=== PATIENT | male | born 1995 | race Caucasian/White ===

== ENCOUNTER 2018-09-12 06:28 | Emergency (ER) | payer BC ==
[~2018-09-12] VITALS: Ht 167.6 cm; Wt 72.3 kg
[2018-09-12 06:32] VITALS: Ht 167.6 cm; Wt 72.3 kg
[2018-09-12] MEDS ORDERED: KETOROLAC 60 MG INJ IM STA (07:16)
[2018-09-12] MEDS ORDERED: IBUP-1542 PO (10:19)
[2018-09-12 10:34] VITALS: BP 145/86; PULSE 80; RESP 17
--- NOTE | 2018-09-12 11:40 | ERD ---
ER Documentation Chief Complaint Chief Complaint HEADACHE X 8 DAYS HPI 23-year-old male patient with no significant past medical history presents to ED complaining of a gradual onset headache that started 8 days ago. Patient reports that it feels like a pulsing sensation in the back of his head. Patient reports that he has been more stressful due to having problems with his girlfriend according to his friend. Patient is [place]ian-speaking. Reports that loud noises does make his headache worse. Denies any suicidal or homicidal ideations. States that he also does not drink much water. Denies any fever, chills, nausea, vomiting, diarrhea, neck stiffness. Denies any head or neck injuries. Denies any vision loss, diplopia. ROS All systems reviewed and are negative except as per history of present illness. Medications Home Meds Active Scripts Ibuprofen* (Motrin*) 600 Mg Tab, 600 MG PO Q6, #30 TAB Prov:AMADEO PALOMINO PA-C 09/12/18 Allergies Allergies: Coded Allergies: No Known Allergy (Unverified , 09/12/18) PMhx/Soc Medical and Surgical Hx: pt denies Medical Hx, pt denies Surgical Hx Hx Alcohol Use: No Hx Substance Use: No Hx Tobacco Use: No Smoking Status: Never smoker FmHx Family History: No diabetes, No coronary disease Physical Exam Vitals Vital Signs Date Temp Pulse Resp B/P (MAP) Pulse Ox O2 O2 Flow FiO2 Time Delivery Rate 09/12/18 80 17 145/86 98 10:34 (105) 09/12/18 97.6 83 16 143/85 100 06:32 (104) Physical Exam Const: Mne-ogf-luhvjjtya, well-nourished. In no acute distress. Head: Atraumatic, normocephalic. No hematoma. No trevino sign. No raccoon eyes. Eyes: Normal Conjunctiva without injection. No purulent discharge. PERRLA. EOMI ENT: Normal external ear. Ear canal without erythema. Tympanic membrane pearly cheema without effusion or bulging. Nasal canal clear with normal turbinates. Moist oropharynx without tonsillar exudates. Non-erythematous pharynx. Uvula midline. No drooling. No trismus. Neck: No cervical midline tenderness. Full range of motion. No meningismus. No cervical lymphadenopathy. No JVD. Resp: Clear to auscultation bilaterally. No wheezing, rhonchi, rales, or crackles. No accessory muscle use. No retractions. Cardio: Regular rate and rhythm. No murmurs, rubs or gallops. Abd: Soft, non tender, non distended. Normal bowel sounds. No palpable masses. No rebound tenderness. No guarding. Negative McBurney's Point. Negative Stanton's Sign. Skin: Normal skin turgor. No petechiae or rashes Back: No midline tenderness. No CVA tenderness. Ext: No cyanosis, or edema. Distal pulses intact bilaterally. Neur: Awake and alert. Normal gait. Normal coordination. Cranial Nerves II- VII intact. Normal finger to nose. Muscle strength 5/5. Sensation intact. Psych: Normal Mood and Affect Results 24 hrs Current Medications Medications Dose Sig/Law Start Time Status Last (Trade) Ordered Route PRN Stop Time Admin Dose Reason Admin Ketorolac 60 mg ONCE STAT 09/12/18 DC 09/12/18 Tromethamine IM 07:16 07:29 (Toradol) 09/12/18 07:18 Procedures/MDM 23-year-old male patient with no significant past medical history presents to ED complaining of a headache that started 8 days ago. Patient is afebrile and nontoxic-appearing. Patient was initially given Toradol 60 mg IM with no improvement of his symptoms and requested for a CT of the brain without contrast. CT was ordered to further evaluate patient. IMPRESSION: Unremarkable noncontrast CT of the brain. CT of the brain without contrast was negative for any acute findings. Differentials include tension headache versus migraine headaches. Low suspicion for severe dehydration, carotid dissection, intracranial bleed, subarachnoid hemorrhage, meningitis, TIA, stroke, subdural hematoma, epidural hematoma, or other emergent conditions. Diagnosis: Headache Discharge medications: Ibuprofen Follow up with primary care physician in 1-2 days. Instructed patient to return to the ED sooner for any worsening symptoms. Patient's questions were answered. Patient is hemodynamically stable. Patient understood and agreed with discharge plan. Patient discharged stable. Disclaimer: Inadvertent spelling and grammatical errors are likely due to EHR/dictation software use and do not reflect on the overall quality of patient care. Also, please note that the electronic time recorded on this note does not necessarily reflect the actual time of the patient encounter. Departure Diagnosis: Primary Impression: Headache Headache type: unspecified Headache chronicity pattern: unspecified pattern Intractability: not intractable Qualified Codes: R51 - Headache Condition: Stable Patient Instructions: Headache, Unspecified Referrals: [facility] YOU HAVE RECEIVED A MEDICAL SCREENING EXAM AND THE RESULTS INDICATE THAT YOU DO NOT HAVE A CONDITION THAT REQUIRES URGENT TREATMENT IN THE EMERGENCY DEPARTMENT. FURTHER EVALUATION AND TREATMENT OF YOUR CONDITION CAN WAIT UNTIL YOU ARE SEEN IN YOUR DOCTORS OFFICE WITHIN THE NEXT 1-2 DAYS. IT IS YOUR RESPONSIBILITY TO MAKE AN APPOINTMENT FOR FOLOW-UP CARE. IF YOU HAVE A PRIMARY DOCTOR --you should call your primary doctor and schedule an appointment IF YOU DO NOT HAVE A PRIMARY DOCTOR YOU CAN CALL OUR PHYSICIAN REFERRAL HOTLINE AT IF YOU CAN NOT AFFORD TO SEE A PHYSICIAN YOU CAN CHOSE FROM THE FOLLOWING [facility] [address] [facility]. [facility] [address] [facility] [address] [facility] [address] [facility] [facility] [address] [facility]. [facility] [address] [facility]. [facility] YOU HAVE RECEIVED A MEDICAL SCREENING EXAM AND THE RESULTS INDICATE THAT YOU DO NOT HAVE A CONDITION THAT REQUIRES URGENT TREATMENT IN THE EMERGENCY DEPARTMENT. FURTHER EVALUATION AND TREATMENT OF YOUR CONDITION CAN WAIT UNTIL YOU ARE SEEN IN YOUR DOCTORS OFFICE WITHIN THE NEXT 1-2 DAYS. IT IS YOUR RESPONSIBILITY TO MAKE AN APPOINTMENT FOR FOLOW-UP CARE. IF YOU HAVE A PRIMARY DOCTOR --you should call your primary doctor and schedule and appointment IF YOU DO NOT HAVE A PRIMARY DOCTOR YOU CAN CALL OUR PHYSICIAN REFERRAL HOTLINE AT . IF YOU CAN NOT AFFORD TO SEE A PHYSICIAN YOU CAN CHOSE FROM THE FOLLOWING [facility] INSTITUTIONS: [facility] [address] [place] [address] [facility] [address] [place] [address] [facility] [place] [address] [place] [address] [facility]/SPECIALTIES Additional Instructions: Llame al doctor MAANA y abril jasbir DEANGELO PARA DENTRO DE 2-3 TORRES.Dgale a la secretaria que nosotros le instruimos hacer esta deangelo.Avise o llame si dias condicin se empeora antes de la deangelo. Regresa aqui si peor o no mejor. AMADEO PALOMINO PA-C Sep 12, 2018 11:40
== END 2018-09-12 10:35 | disposition home or self-care (01) ==
LOC: FTE 06:28
DX: R51 Headache (principal)
CPT/HCPCS: 70450; J1885; 96372